=== PATIENT | male | born 1950 | race Caucasian/White ===

== ENCOUNTER 2018-09-16 08:54 | Outpatient (CLI) | payer OTHER, SELFPAY ==
[2018-09-16 10:24] LABS: Cholesterol 212 mg/dL (50-200); HDL Cholesterol 63 mg/dL (40-60); LDL CHOLESTEROL 139 mg/dL (<100); Triglyceride 123 mg/dL (30-150)
== END 2018-09-16 09:14 ==
PROVIDERS: PCP Family Medicine; Visit Provider Family Medicine
DX: I10 Essential (primary) hypertension (principal)
CPT/HCPCS: 36415; 80061; 83721

== ENCOUNTER 2019-04-04 12:01 | Outpatient (CLI) | payer OTHER, SELFPAY ==
[2019-04-04 13:00] LABS: CREATININE 1.21 mg/dL (0.70-1.30); Estimated GFR 59.64 (mL/min/1.73m2); Potassium 3.8 mmol/L (3.5-5.1)
[2019-04-05 09:51] LABS: PSA, Screening 0.6 ng/ml (0-4.5)
== END 2019-04-04 12:21 ==
PROVIDERS: PCP Family Medicine; Visit Provider Family Medicine
DX: I10 Essential (primary) hypertension (principal); N51 Disorders of male genital organs in diseases classified elsewhere; Z12.5 Encounter for screening for malignant neoplasm of prostate
CPT/HCPCS: 36415; 84153; 82565; 84132

== ENCOUNTER 2020-09-09 14:39 | Outpatient (CLI) | payer OTHER, SELFPAY ==
--- NOTE | 2020-09-09 14:00 | DI.RAD_ITS ---
EXAM: XR SHOULDER RT COMPLETE 2+V CLINICAL HISTORY: right shoulder pain. TECHNIQUE: 2D digital imaging was performed. COMPARISON: No exams were available for comparison FINDINGS: BONES: No acute fracture is present. No bony destructive lesion is seen. JOINTS: No dislocation present. Mild degenerative changes are seen at the acromioclavicular joint. T here are degenerative changes of the glenohumeral joint characterized by periarticular spurring. SOFT TISSUE: Normal. IMPRESSION: Osteoarthritis of the right shoulder. DATA REPOSITORY: RADIATION DOSE DELIVERED:
--- NOTE | 2020-09-09 14:00 | DI.RAD_ITS ---
EXAM: XR THUMB LT EXAM DATE/TIME: CLINICAL HISTORY: eval L thumb MCP pain. TECHNIQUE: 2D digital imaging was performed. COMPARISON: None. FINDINGS: BONES: No acute fracture is present. No bony destructive lesion is seen. JOINTS: No dislocation is present. [id number] degenerative changes are seen at the 1st CMC rox nt characterized by joint space narrowing and periarticular spurring. The interphalangeal joint and 1st MCP joint are unremarkable. SOFT TISSUE: Normal. 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 DATA REPOSITORY: RADIATION DOSE DELIVERED:
== END 2020-09-09 14:59 ==
PROVIDERS: PCP Family Medicine; Referring Provider Family Medicine; Visit Provider Student in an Organized Health Care Education/Training Program
DX: M18.12 Unilateral primary osteoarthritis of first carpometacarpal joint, left hand (principal); M19.011 Primary osteoarthritis, right shoulder; M25.511 Pain in right shoulder; M79.645 Pain in left finger(s); M75.101 Unspecified rotator cuff tear or rupture of right shoulder, not specified as traumatic; M75.121 Complete rotator cuff tear or rupture of right shoulder, not specified as traumatic; W19.XXXA Unspecified fall, initial encounter
CPT/HCPCS: 20600; 20610; 99204; 73030; 73140; J1030; J1040

== ENCOUNTER 2020-09-18 00:57 | Outpatient (CLI) | payer OTHER, SELFPAY ==
--- NOTE | 2020-09-18 06:45 | DI.MRI_ITS ---
EXAM: MR UPPER JOINT RT WO CLINICAL HISTORY: PAIN, RT ROTATOR CUFF TEAR ARTHROPATHY, M75.121, M75.101. TECHNIQUE: Multiplanar multisequence MRI was performed. COMPARISON: Plain films dated 09 September 2020 FINDINGS: There is a full-thickness tear with retraction to the level of the glenoid of the supraspinatus tendo n. There is severe muscle atrophy, consistent with a Goutallier classification grade 4. The infrasp inatus tendon is also torn and retracted to the level of the glenoid which shows mild atrophy. Teres minor tendon appears intact. The biceps tendon is intact. The subscapularis tendon appears intact. There are mild degenerative changes of the AC joint and mild spurring at the undersurface of acromi on. There is spurring from the inferior glenoid and subchondral cysts. Marrow signal is normal. IMPRESSION: Full-thickness tears of the supraspinatus and infraspinatus tendons with retraction. DATA REPOSITORY:
== END 2020-09-18 01:17 ==
PROVIDERS: PCP Family Medicine; Visit Provider Student in an Organized Health Care Education/Training Program
DX: M75.121 Complete rotator cuff tear or rupture of right shoulder, not specified as traumatic (principal); M19.011 Primary osteoarthritis, right shoulder
CPT/HCPCS: 73221

== ENCOUNTER → 2020-10-02 15:22 | Outpatient (BNVA) | payer OTHER, SELFPAY | PROVIDERS: PCP Family Medicine; Referring Provider Family Medicine; Visit Provider Student in an Organized Health Care Education/Training Program | DX: M75.121 Complete rotator cuff tear or rupture of right shoulder, not specified as traumatic (principal); M12.811 Other specific arthropathies, not elsewhere classified, right shoulder; S46.212D Strain of muscle, fascia and tendon of other parts of biceps, left arm, subsequent encounter; S46.211D Strain of muscle, fascia and tendon of other parts of biceps, right arm, subsequent encounter; V86.99XD Unspecified occupant of other special all-terrain or other off-road motor vehicle injured in nontraffic accident, subsequent encounter; I10 Essential (primary) hypertension | CPT/HCPCS: 99214 ==

== ENCOUNTER 2021-04-08 22:09 | Outpatient (REF) | payer OTHER, SELFPAY ==
[2021-04-08 22:26] LABS: CREATININE 1.2 mg/dL (0.70-1.30); Calculated LDL 98 mg/dL (<100); Cholesterol 189 mg/dL (<200); Estimated GFR 59.86 (mL/min/1.73m2); HDL Cholesterol 75 mg/dL (40-60); Triglyceride 84 mg/dL (<150)
[2021-04-09 17:26] LABS: PSA, Screening 0.7 ng/mL (0.0-6.5)
== END 2021-04-08 22:10 | disposition home or self-care (01) ==
LOC: LBN 22:09
PROVIDERS: PCP Family Medicine; Visit Provider Family Medicine
DX: I10 Essential (primary) hypertension (principal); E78.5 Hyperlipidemia, unspecified; Z12.5 Encounter for screening for malignant neoplasm of prostate
CPT/HCPCS: 80061; 84153; 82565; 84132

== ENCOUNTER 2022-04-08 09:24 | Outpatient (CLI) | payer MEDICARE, SELFPAY | END 2022-04-08 09:25 | disposition home or self-care (01) | LOC: DIORS 09:24 | PROVIDERS: PCP Family Medicine; Referring Provider Family Medicine; Visit Provider Student in an Organized Health Care Education/Training Program | DX: M18.12 Unilateral primary osteoarthritis of first carpometacarpal joint, left hand; M75.121 Complete rotator cuff tear or rupture of right shoulder, not specified as traumatic; M54.2 Cervicalgia; S46.212A Strain of muscle, fascia and tendon of other parts of biceps, left arm, initial encounter; S46.211A Strain of muscle, fascia and tendon of other parts of biceps, right arm, initial encounter; X58.XXXA Exposure to other specified factors, initial encounter | CPT/HCPCS: 99214 ==

== ENCOUNTER 2022-04-22 04:21 | Outpatient (CLI) | payer MEDICARE, SELFPAY ==
[2022-04-22 13:19] LABS: BUN 23 mg/dL (7-18); CREATININE 1.1 mg/dL (0.70-1.30); Calcium 9.6 mg/dL (8.5-10.1); Calculated LDL 100 mg/dL (<100); Chloride 103 mmol/L (98-107); Cholesterol 181 mg/dL (<200); Glucose 113 mg/dL (74-106); HDL Cholesterol 62 mg/dL (40-60); Potassium 3.6 mmol/L (3.5-5.1); Sodium 142 mmol/L (136-145); Triglyceride 97 mg/dL (<150)
== END 2022-04-22 04:22 | disposition home or self-care (01) ==
LOC: LOS 04:21
PROVIDERS: PCP Family Medicine; Visit Provider Family Medicine
DX: E78.5 Hyperlipidemia, unspecified (principal); E87.1 Hypo-osmolality and hyponatremia
CPT/HCPCS: 36415; 80048; 80061; 84153

== ENCOUNTER → 2022-05-01 00:56 | Outpatient (CLI) | payer MEDICARE, SELFPAY ==
--- NOTE | 2022-05-01 09:55 | DI.RAD_ITS ---
Exam(s) XR CERVICAL SPINE COMP 4-5V EXAM: XR CERVICAL SPINE COMP 4-5V CLINICAL HISTORY: neck pain/cracking,M54.2. TECHNIQUE: 2D digital imaging was performed. Five images were obtained. AP, odontoid, lateral and bi lateral oblique images were obtained. COMPARISON: No exams were available for comparison FINDINGS: The odontoid is intact. The lateral masses are well aligned. There is 2 mm of retrolisthesis of C2 o n C3. There is mild reversal of the normal cervical lordosis centered at C5-C6. There is disc space narrowing at C5-C6 and C6-C7. Endplate osteophytes are seen at C3-C4, C5-C6 and C6-C7. No acute frac ture or subluxation is present. There is mild narrowing of the neural foramen on the right at C3-C4 a nd on the left at C6-C7. The cervical thoracic junction is well maintained. The prevertebral soft ti ssues are unremarkable. Lung apices are clear. IMPRESSION: Overall, moderate degenerative changes in the cervical spine. DATA REPOSITORY: RADIATION DOSE DELIVERED:
== END ==
PROVIDERS: PCP Family Medicine; Visit Provider Family Medicine
DX: M50.322 Other cervical disc degeneration at C5-C6 level; M50.323 Other cervical disc degeneration at C6-C7 level
CPT/HCPCS: 72050

== ENCOUNTER 2023-04-22 09:05 | Outpatient (CLI) | payer MEDICARE, SELFPAY ==
[2023-04-22 12:40] LABS: Anion Gap 6.7 mmol/L (3-11); BUN 21 mg/dL (7-18); CO2 32.3 mmol/L (21.0-32.0); CREATININE 1.2 mg/dL (0.70-1.30); Calcium 9.7 mg/dL (8.5-10.1); Calculated LDL 168 mg/dL (<100); Chloride 102 mmol/L (98-107); Cholesterol 268 mg/dL (<200); Estimated GFR 64.25 (mL/min/1.73m2); Glucose 87 mg/dL (74-106); HDL Cholesterol 84 mg/dL (40-60); Potassium 3.6 mmol/L (3.5-5.1); Sodium 141 mmol/L (136-145); Triglyceride 83 mg/dL (<150)
[2023-04-22 22:26] LABS: PSA, Screening 0.8 ng/mL (<=6.5)
== END 2023-04-22 09:06 | disposition home or self-care (01) ==
LOC: LOS 09:05
PROVIDERS: PCP Family Medicine; Visit Provider Family Medicine
DX: E78.5 Hyperlipidemia, unspecified
CPT/HCPCS: 36415; 80048; 80061; 84153

== ENCOUNTER 2024-05-09 10:28 | Outpatient (CLI) | payer MEDICARE, SELFPAY ==
[2024-05-09 13:28] LABS: Anion Gap 5.5 mmol/L (3-11); BUN 17 mg/dL (7-18); CO2 29.5 mmol/L (21.0-32.0); CREATININE 1.1 mg/dL (0.70-1.30); Calcium 9.6 mg/dL (8.5-10.1); Calculated LDL 93 mg/dL (<100); Chloride 104 mmol/L (98-107); Cholesterol 192 mg/dL (<200); Estimated GFR 70.88 (mL/min/1.73m2); Glucose 97 mg/dL (74-106); HDL Cholesterol 74 mg/dL (40-60); Potassium 3.8 mmol/L (3.5-5.1); Sodium 139 mmol/L (136-145); Triglyceride 125 mg/dL (<150)
[2024-05-09 19:16] LABS: HIV-1/2 Ag & Ab Screen Negative (Negative)
[2024-05-09 19:19] LABS: Hepatitis C Ab w Rflx HCV PCR Negative (Negative)
[2024-05-09 19:21] LABS: HBs Antibody, Quant 3.2 mIU/mL (See Note); Hep B Surface Ab Negative (See Note); Hepatitis B Core Antibody Negative (Negative); Hepatitis B Surface Antigen Negative (Negative)
[2024-05-13 15:54] LABS: Testosterone, Free 7.71 ng/dL (3.28-12.2); Testosterone, Total 351 ng/dL (240-950)
== END 2024-05-09 10:29 | disposition home or self-care (01) ==
LOC: LOS 10:29
PROVIDERS: PCP Family Medicine; Referring Provider Family Medicine; Visit Provider Family Medicine
DX: E78.5 Hyperlipidemia, unspecified (principal); I10 Essential (primary) hypertension; E87.1 Hypo-osmolality and hyponatremia; N52.8 Other male erectile dysfunction; N41.0 Acute prostatitis; Z11.4 Encounter for screening for human immunodeficiency virus [HIV]; Z11.59 Encounter for screening for other viral diseases
CPT/HCPCS: 36415; 80048; 80061; 84402; 84403; 86704; 86706; 86803; 87340; 87389

== ENCOUNTER 2025-08-20 07:37 | Outpatient (CLI) | payer MEDICARE, SELFPAY ==
[2025-08-20 14:25] LABS: Anion Gap 5.6 mmol/L (3-11); BUN 16 mg/dL (7-18); CO2 30.4 mmol/L (21.0-32.0); Calcium 10.1 mg/dL (8.5-10.1); Chloride 104 mmol/L (98-107); Estimated GFR 89.62 (mL/min/1.73m2); Glucose 106 mg/dL (74-106); Potassium 4.0 mmol/L (3.5-5.1); Sodium 140 mmol/L (136-145)
[2025-08-21 15:25] LABS: Calculated LDL 112 mg/dL (<100); Cholesterol 200 mg/dL (<200); HDL Cholesterol 68 mg/dL (>or=40); Triglyceride 104 mg/dL (<150)
== END 2025-08-20 07:38 | disposition home or self-care (01) ==
LOC: LOS 07:37
PROVIDERS: PCP Family Medicine; Visit Provider Family Medicine
DX: E87.1 Hypo-osmolality and hyponatremia (principal); E78.5 Hyperlipidemia, unspecified
CPT/HCPCS: 36415; 80048; 80061